=== PATIENT | female | born 2000 | race Caucasian/White ===

== ENCOUNTER 2021-09-08 09:42 | Emergency (ER) | payer OTHER ==
[~2021-09-08 09:42] MED LIST: ZOFRAN ODT4 MG PO/SL
[2021-09-08 10:22] LABS: BASOPHIL 0.2 % (0-2); EOSINOPHIL 0 % (0-5); HCT 41.6 % (37.0-47.0); HGB 14.6 g/dl (12.5-16.0); LYMPHOCYTE 4.4 % (15-48); MCH 31.5 pg (25.0-31.0); MCHC 35.1 g/dL (32.0-36.0); MCV 89.8 fL (78.0-100.0); MONOCYTE 2.3 % (0-12); MPV 11.6 fL (6.0-9.5); NRBC 0; PLT 263 K/uL (150-400); RBC 4.63 M/uL (4.20-5.40); RDW 12.4 % (11.5-14.0); WBC 17.4 K/uL (4.0-10.5)
[2021-09-08 10:24] LABS: NEUTROPHIL 92.6 % (41-80)
[2021-09-08 10:45] LABS: ALBUMIN 4.2 g/dL (3.4-5.0); BILIRUBIN - TOTAL 0.5 mg/dL (0.2-1.0); BUN/CREAT RATIO (CALC) 25.9 RATIO; C-REACTIVE PROTEIN 0.5 mg/dL (<=0.90); CREATININE 0.54 mg/dL (0.51-0.95); POTASSIUM 3.3 mmol/L (3.5-5.1); TOTAL PROTEIN 8.2 g/dL (6.4-8.2)
[2021-09-08 11:38] LABS: BILIRUBIN NEGATIVE (NEGATIVE); BLOOD NEGATIVE Ery/uL (NEGATIVE); CLARITY CLEAR (CLEAR); COLOR YELLOW (YELLOW); GLUCOSE (U) NORMAL (NORMAL); LEUKOCYTES NEGATIVE Leu/uL (NEGATIVE); NITRITE NEGATIVE (NEGATIVE); PROTEIN 2+ mg/dL (NEGATIVE); SPECIFIC GRAVITY >=1.030 (1.001-1.030); UROBILINOGEN 0.2 mg/dL (0.2-1.0); pH 6.5 (5.0-9.0)
[2021-09-08 11:44] LABS: AMPHETAMINES NEGATIVE (NEGATIVE); BARBITURATES NEGATIVE (NEGATIVE); ECSTASY (MDMA) NEGATIVE (NEGATIVE); MARIJUANA (THC) POSITIVE (NEGATIVE); METHADONE NEGATIVE (NEGATIVE); OPIATES NEGATIVE (NEGATIVE); OXYCODONE NEGATIVE (NEGATIVE)
[2021-09-08 11:51] LABS: BACTERIA 3+
[2021-09-08 11:52] LABS: MUCOUS LARGE; YEAST PRESENT
[2021-09-08] MEDS ORDERED: KEFLEX250 MG PO (14:56)
[2021-09-08] MEDS ORDERED: GYNE-LOTRIMIN-745 GM VG (14:56)
[2021-09-08] MEDS ORDERED: ONDANSETRON ODT4 MG PO (14:56)
[2021-09-08] MEDS ORDERED: PROMETHEGA12.5 MG/SU PR (14:56)
== END 2021-09-08 17:38 | disposition home or self-care (01) ==
LOC: FER 09:42
PROVIDERS: Emergency Medicine
DX: O21.0 Mild hyperemesis gravidarum (principal); O98.811 Other maternal infectious and parasitic diseases complicating pregnancy, first trimester; R78.81 Bacteremia; O99.331 Smoking (tobacco) complicating pregnancy, first trimester; F17.210 Nicotine dependence, cigarettes, uncomplicated; Z3A.01 Less than 8 weeks gestation of pregnancy
CPT/HCPCS: 36415; 80053; 80305; 81001; 82728; 83615; 83690; 83735; 84702; 85025; 86140; J2405; J7030

== ENCOUNTER 2021-09-23 12:58 | Emergency (ER) | payer OTHER ==
[~2021-09-23 12:58] MED LIST changes: +GYNE-LOTRIMIN-745 GM VG; +KEFLEX250 MG PO; +ONDANSETRON ODT4 MG PO; +PROMETHEGA12.5 MG/SU PR
[2021-09-23 16:08] LABS: BASOPHIL 0.2 % (0-2); EOSINOPHIL 0 % (0-5); HCT 41.7 % (37.0-47.0); HGB 14.5 g/dl (12.5-16.0); LYMPHOCYTE 4.2 % (15-48); MCH 31.7 pg (25.0-31.0); MCHC 34.8 g/dL (32.0-36.0); MONOCYTE 1.6 % (0-12); MPV 11.2 fL (6.0-9.5); NRBC 0; PLT 253 K/uL (150-400); RBC 4.58 M/uL (4.20-5.40); RDW 12.6 % (11.5-14.0); WBC 17.1 K/uL (4.0-10.5)
[2021-09-23 16:25] LABS: ALBUMIN 4.2 g/dL (3.4-5.0); BILIRUBIN - TOTAL 0.5 mg/dL (0.2-1.0); BUN/CREAT RATIO (CALC) 19.1 RATIO; CREATININE 0.47 mg/dL (0.51-0.95); GLOBULIN (CALCULATION) 3.7 g/dL; POTASSIUM 3.6 mmol/L (3.5-5.1); TOTAL PROTEIN 7.9 g/dL (6.4-8.2)
[2021-09-23 16:40] LABS: NEUTROPHIL 93.5 % (41-80)
[2021-09-23 17:31] LABS: BILIRUBIN NEGATIVE (NEGATIVE); BLOOD NEGATIVE Ery/uL (NEGATIVE); COLOR YELLOW (YELLOW); GLUCOSE (U) NORMAL (NORMAL); LEUKOCYTES TRACE Leu/uL (NEGATIVE); NITRITE NEGATIVE (NEGATIVE); PROTEIN 2+ mg/dL (NEGATIVE); SPECIFIC GRAVITY >=1.030 (1.001-1.030); UROBILINOGEN 0.2 mg/dL (0.2-1.0)
[2021-09-23 17:33] LABS: CLARITY SLIGHTLY HAZY (CLEAR)
[2021-09-23 17:46] LABS: BACTERIA TRACE; SQUAMOUS EPITHELIAL CELLS 20-50; URINARY RBC RARE
[2021-09-23 17:47] LABS: MUCOUS TRACE
== END 2021-09-23 18:07 | disposition home or self-care (01) ==
LOC: FER 12:58
PROVIDERS: Emergency Medicine
DX: O21.9 Vomiting of pregnancy, unspecified (principal); O99.891 Other specified diseases and conditions complicating pregnancy; R19.7 Diarrhea, unspecified; O99.111 Other diseases of the blood and blood-forming organs and certain disorders involving the immune mechanism complicating pregnancy, first trimester; D72.829 Elevated white blood cell count, unspecified; O99.331 Smoking (tobacco) complicating pregnancy, first trimester; F17.200 Nicotine dependence, unspecified, uncomplicated; Z3A.10 10 weeks gestation of pregnancy
CPT/HCPCS: 36415; 80053; 81001; 85025; 87088; J1200; J2405; J7030

== ENCOUNTER 2021-10-26 01:25 | Emergency (ER) | payer OTHER ==
[2021-10-26 02:14] LABS: BASOPHIL 0.2 % (0-2); EOSINOPHIL 0.1 % (0-5); HCT 38.7 % (37.0-47.0); HGB 13.7 g/dl (12.5-16.0); LYMPHOCYTE 9.1 % (15-48); MCH 31.9 pg (25.0-31.0); MCHC 35.4 g/dL (32.0-36.0); MCV 90.2 fL (78.0-100.0); MONOCYTE 3.1 % (0-12); MPV 11.7 fL (6.0-9.5); NRBC 0; PLT 237 K/uL (150-400); RBC 4.29 M/uL (4.20-5.40); RDW 12.8 % (11.5-14.0); WBC 17.7 K/uL (4.0-10.5)
[2021-10-26 02:28] LABS: BILIRUBIN - TOTAL 0.5 mg/dL (0.2-1.0); CREATININE 0.43 mg/dL (0.51-0.95); GLOBULIN (CALCULATION) 3.3 g/dL; POTASSIUM 3.5 mmol/L (3.5-5.1); TOTAL PROTEIN 7.3 g/dL (6.4-8.2)
[2021-10-26] MEDS ORDERED: VITAMIN B-650 MG PO (06:07)
[2021-10-26] MEDS ORDERED: UNISOM25 MG PO (06:07)
[2021-10-26] MEDS ORDERED: PROMETHEGA12.5 MG/SU PR (06:10)
== END 2021-10-26 06:45 | disposition home or self-care (01) ==
LOC: FER 01:25
PROVIDERS: Emergency Medicine
DX: O99.891 Other specified diseases and conditions complicating pregnancy (principal); R11.2 Nausea with vomiting, unspecified; Z3A.15 15 weeks gestation of pregnancy
CPT/HCPCS: 36415; 80053; 85025; J0780; J2405; J2550; J7030

== ENCOUNTER 2022-04-19 19:58 | Inpatient (IN) | payer OTHER ==
[~2022-04-19 19:58] MED LIST changes: +UNISOM25 MG PO; +VITAMIN B-650 MG PO
[2022-04-19 21:06] LABS: BILIRUBIN NEGATIVE (NEGATIVE); BLOOD NEGATIVE Ery/uL (NEGATIVE); CLARITY CLEAR (CLEAR); COLOR YELLOW (YELLOW); GLUCOSE (U) NORMAL (NORMAL); LEUKOCYTES 1+ Leu/uL (NEGATIVE); NITRITE NEGATIVE (NEGATIVE); PROTEIN NEGATIVE (NEGATIVE); SPECIFIC GRAVITY 1.015 (1.001-1.030); pH 7.5 (5.0-9.0)
[2022-04-19 21:10] LABS: AMPHETAMINES NEGATIVE (NEGATIVE); BARBITURATES NEGATIVE (NEGATIVE); ECSTASY (MDMA) NEGATIVE (NEGATIVE); MARIJUANA (THC) POSITIVE (NEGATIVE); METHADONE NEGATIVE (NEGATIVE); OPIATES NEGATIVE (NEGATIVE); OXYCODONE NEGATIVE (NEGATIVE)
[2022-04-19 21:17] LABS: HCT 34.2 % (37.0-47.0); HGB 11.7 g/dl (12.5-16.0); MCH 31.9 pg (25.0-31.0); MCHC 34.2 g/dL (32.0-36.0); MCV 93.2 fL (78.0-100.0); MPV 12.5 fL (6.0-9.5); RBC 3.67 M/uL (4.20-5.40); RDW 13.8 % (11.5-14.0); WBC 12.4 K/uL (4.0-10.5)
[2022-04-19 21:38] LABS: BACTERIA TRACE; URINARY RBC RARE
[2022-04-21 07:18] LABS: HCT 31.1 % (37.0-47.0); HGB 10.6 g/dL (12.5-16.0)
== END 2022-04-22 13:42 | disposition home or self-care (01) | DRG 806 ==
LOC: FOB 19:58
PROVIDERS: ADMIT Obstetrics & Gynecology
PROC: 10E0XZZ Delivery of Products of Conception, External Approach (ICD-10-PCS; principal; 2022-04-20)
PROC: 3E033VJ Introduction of Other Hormone into Peripheral Vein, Percutaneous Approach (ICD-10-PCS; 2022-04-20)
PROC: 0HQ9XZZ Repair Perineum Skin, External Approach (ICD-10-PCS; 2022-04-20)
DX: O48.0 Post-term pregnancy (principal); D62 Acute posthemorrhagic anemia; Z37.0 Single live birth; O99.324 Drug use complicating childbirth; Z3A.40 40 weeks gestation of pregnancy; O70.0 First degree perineal laceration during delivery; Z20.822 Contact with and (suspected) exposure to COVID-19; O99.02 Anemia complicating childbirth; D50.9 Iron deficiency anemia, unspecified; O26.13 Low weight gain in pregnancy, third trimester; O99.334 Smoking (tobacco) complicating childbirth; F17.210 Nicotine dependence, cigarettes, uncomplicated; F12.90 Cannabis use, unspecified, uncomplicated; O99.344 Other mental disorders complicating childbirth; F31.9 Bipolar disorder, unspecified
CPT/HCPCS: 36415; 80305; 81001; 85014; 85018; 86850; 86900; 86901; J2001; J2405; J3010; J7120; U0002